=== PATIENT | male | born 1995 | race African-American/Black ===

== ENCOUNTER 2018-03-01 22:33 | Emergency (ER) | payer SELFPAY ==
[~2018-03-01 22:33] MED LIST: ISOVUE-370 76%-LOCM 1 ML ONE
[2018-03-01] MEDS ORDERED: Morphine 10 MG/ML VIAL ONE (23:39)
[2018-03-01] MEDS ORDERED: Ondansetron HCl/PF 4 MG/2 ML Vial ONE (23:40)
[2018-03-01 23:56] LABS: #Basophils 0.1 thou/uL (0.0-0.2); #Eosinphils 0.1 thou/uL (0.0-0.7); #Lymphocytes 2.2 thou/uL (1.20-3.40); #Monocytes 0.4 thou/uL (0.11-0.59); #Neutrophils 5.2 thou/uL (1.40-6.50); %Basophils 0.8 % (0.0-1.0); %Eosinophils 1.2 % (0.0-10.0); %Lymphocytes 27.5 % (21.0-51.0); %Monocytes 5.5 % (0.0-10.0); %Neutrophils 65.1 % (42.0-75.0); Hemoglobin 15.1 g/dL (14.0-18.0); Mean Corpuscular HGB CONC 35.2 g/dL (32.0-36.0); Mean Corpuscular Hemoglobin 27.1 pg (27.0-31.0); Mean Corpuscular Volume 77.1 fl (80.0-94.0); Mean Platelet Volume 8.2 fL (7.4-10.4); Platelet Count 186 thou/uL (130-400); RBC Distribution Width 12.7 % (11.5-14.5); Red Blood Cell (RBC) Count 5.56 mill/uL (4.70-6.10)
[2018-03-01 23:58] LABS: Bilirubin Negative (Negative); Blood, Urine Negative (Negative); Clarity CLEAR (Clear); Glucose, Urine (Dipstick) Negative (Negative); Leukocyte Small (Negative); Nitrite Negative (Negative); Protein, Urine (Dipstick) Negative (Neg-Trace); Specific Gravity, Urine 1.022 (1.002-1.036)
[2018-03-02] LABS: Bacteria/HPF None Seen HPF (None Seen); Hyaline Casts/LPF 0-3 HYALINE CAST LPF (0-3 Hyaline); Pathc Cast-AUWi Flag 0.14 (0-2.49); Squamous Epithelial 0-3 HPF (0-3)
[2018-03-02 00:19] LABS: ALT (SGPT) 22 U/L (8-55); AST (SGOT) 37 U/L (5-34); Albumin 4.3 g/dL (3.5-5.0); Alkaline Phosphatase 50 U/L (40-150); Anion Gap 11 mmol/L (10-20); BUN (Urea Nitrogen) 12 mg/dL (8.9-20.6); Bilirubin, Total 0.4 mg/dL (0.2-1.2); Calc. Creatinine Clearance 0 mL/min (70-130); Calcium 9.5 mg/dL (7.8-10.44); Carbon Dioxide 24 mmol/L (22-29); Chloride 111 mmol/L (98-107); Estimated GFR-MDRD 79; Globulin 2.8 g/dL (2.4-3.5); Glucose 123 mg/dL (70-105); Potassium 3.7 mmol/L (3.5-5.1); Protein, Total 7.1 g/dL (6.0-8.3); Sodium 142 mmol/L (136-145)
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
== END 2018-03-02 02:01 | disposition home or self-care (01) ==
LOC: ERS 22:33
DX: M54.2 Cervicalgia (principal); M54.6 Pain in thoracic spine; F17.210 Nicotine dependence, cigarettes, uncomplicated; V43.62XA Car passenger injured in collision with other type car in traffic accident, initial encounter
CPT/HCPCS: 70450; 71260; 72125; 74177; 80053; 81003; 81015; 85025; 96361; 96374; 96375; J2270; J2405

== ENCOUNTER 2021-07-01 22:45 | Emergency (ER) | payer SELFPAY ==
[2021-07-01] MEDS ORDERED: Lidocaine 1% (PF) 30 ML VIAL ONE (23:22)
[2021-07-01] MEDS ORDERED: Boostrix 0.5 ML (Tdap) VIAL ONE (23:22)
[2021-07-02] MEDS ORDERED: Bacitracin 1 PK ONE (00:03)
== END 2021-07-02 00:20 | disposition home or self-care (01) ==
LOC: ERS 22:45
DX: S61.215A Laceration without foreign body of left ring finger without damage to nail, initial encounter (principal); F17.200 Nicotine dependence, unspecified, uncomplicated; W45.8XXA Other foreign body or object entering through skin, initial encounter; Y99.0 Civilian activity done for income or pay
CPT/HCPCS: 12001; 90471; 90715; J2001

== ENCOUNTER 2022-08-10 12:28 | Emergency (ER) | payer SELFPAY | END 2022-08-10 13:54 | disposition home or self-care (01) | LOC: ERS 12:28 | DX: R25.2 Cramp and spasm (principal) ==

== ENCOUNTER 2024-01-02 07:18 | Emergency (ER) | payer SELFPAY ==
[2024-01-02] MEDS ORDERED: Ketorolac Tromethamine 30 MG (1 mL) VIAL ONE (07:32)
[2024-01-02] MEDS ORDERED: Metoclopramide HCl 10 MG TAB ONE (07:33)
[2024-01-02] MEDS ORDERED: Acetaminophen 500 MG TAB ONE (08:42)
== END 2024-01-02 10:27 | disposition home or self-care (01) ==
LOC: ERS 07:18
DX: J18.9 Pneumonia, unspecified organism (principal); F17.200 Nicotine dependence, unspecified, uncomplicated
CPT/HCPCS: 71045; 96372; J1885

== ENCOUNTER 2024-12-14 17:05 | Emergency (ER) | payer SELFPAY ==
[2024-12-14] MEDS ORDERED: Ibuprofen 800 MG TAB ONE (18:49)
[2024-12-14] MEDS ORDERED: Acetaminophen 500 MG TAB ONE (18:49)
== END 2024-12-14 20:42 | disposition home or self-care (01) ==
LOC: ERS 17:05
DX: B34.9 Viral infection, unspecified (principal); F17.210 Nicotine dependence, cigarettes, uncomplicated
CPT/HCPCS: 71045; 87428